=== PATIENT | female | born 1940 | race Caucasian/White ===

== ENCOUNTER → 2023-07-09 16:20 | Outpatient (REF) | payer MEDICARE, SELFPAY | LOC: MRI 16:20 | PROVIDERS: ATTENDING PHYSICIAN Orthopaedic Surgery Orthopaedic Surgery of the Spine; FAMILY PHYSICIAN Family Medicine | DX: M48.062 Spinal stenosis, lumbar region with neurogenic claudication (principal) | CPT/HCPCS: 72158; A9575 ==

== ENCOUNTER → 2024-01-19 12:34 | Outpatient (REF) | payer MEDICARE, SELFPAY | LOC: WDC 12:34 | PROVIDERS: ATTENDING PHYSICIAN Family Medicine | DX: Z12.31 Encounter for screening mammogram for malignant neoplasm of breast (principal) | CPT/HCPCS: 77063; 77067 ==

== ENCOUNTER → 2025-03-09 14:26 | Outpatient (REF) | payer MEDICARE, SELFPAY | LOC: WDC 14:26 | PROVIDERS: ATTENDING PHYSICIAN Family Medicine | DX: Z12.31 Encounter for screening mammogram for malignant neoplasm of breast (principal) | CPT/HCPCS: 77063; 77067 ==